=== PATIENT | female | born 1975 | race Caucasian/White ===

== ENCOUNTER 2018-09-01 04:25 | Emergency (ER) | payer BC, OTHER ==
[~2018-09-01] VITALS: Ht 175.3 cm; Wt 120.2 kg
[~2018-09-01 04:25] MED LIST: AGM875T PO; ALPR.5T PO; ASP81TEC PO; CPR500T PO; DCS100C PO; LISI1TAB10 PO; ONDN4T PO; OXYC-12 PO
--- OUTSIDE RECORDS SUMMARY | 2018-09-01 04:34 | XMS REPORT | Continuity of Care Document ---
Author Organization Unknown Address Unknown Allergies Active Description Code Type Severity Reaction Onset Reported/Identified Relationship to Patient Clinical Status Yes No Known Drug Allergies [id number] Drug Allergy Unknown N/A 12/25/2012 Medications There is no data. Problems There is no data. Procedures There is no data. Results There is no data. Encounters ACCT No. Visit Date/Time Discharge Status Pt. Type Provider Facility Loc./Unit Complaint [id number] 01/04/2013 18:10:00 01/07/2013 15:50:00 DIS Inpatient [id number] 12/25/2012 18:10:00 12/27/2012 15:40:00 DIS Inpatient [id number] 09/01/2018 04:30:00 ACT Emergency JAYMIE MOSES, TERRENCE Retana [facility] ER WOUND LEAKAGE FROM HERNIA REPAIR
--- OUTSIDE RECORDS SUMMARY | 2018-09-01 04:34 | XMS REPORT | Continuity of Care Document ---
Author Author [facility] Organization [facility] Address Unknown Phone Unavailable Care Team Providers Care Power Crane Operator Name Role Phone BIVINS, [facility] Insurance Providers Payer Name Policy Number Subscriber Name Relationship Self Pay Tanya Poe 01 Self / Same As Patient Advance Directives Directive Response Recorded Date Advance Directives N 12/25/12 8:00pm Problems No Known Problems or Medical conditions. Family History History Response Recorded Date/Time Hx Family Cancer N 12/25/12 8:00pm Hx Family Breast Cancer N 12/25/12 8: 00pm Hx Family Lung Cancer N 12/25/12 8:00pm Hx Family Colorectal Cancer N 12/25/12 8: 00pm Hx Family Cardiac Disorders Y Grandfather on both side 12/25/12 8:00pm Hx Family Stroke N 12/25/12 8:00pm Hx Family Hypertension N 12/25/12 8:00pm Hx Family Myocardial Infarction N 8:00pm Hx Family Cystic Fibrosis N 12/25/12 8: 00pm Social History History Response Recorded Date/Time Alcohol Use Denies Use 12/25/12 8:00pm Recreational Drug Use N 12/25/12 8:00pm Allergies, Adverse Reactions, Alerts Allergen Type Severity Reaction Last Updated No Known Drug Allergies 12/25/12 Medications Medication Dose Units Route Sig Qty Days Oxycodone Hcl/Acetaminophen (Percocet 5-325 Mg Tablet) 1 - 2 Tab PO Q4-6H PRN 35 Ciprofloxacin (Cipro) 1 Tab PO BID 7 Alprazolam (Xanax) 1 Tab PO TID PRN HCTZ/Lisinopril (Lisinopril-Hctz 20-25MG Tab) 1 Each PO DAILY Response Recorded Date/Time Status not known Unknown Results Test Date Result Interp. Ref. Range Alanine Aminotransferase (ALT/SGPT) December 25, 2012 5:15pm 31 U/L N 30-65 Albumin December 25, 2012 5:15pm 3.6 G/DL N 3.4-5.0 Alkaline Phosphatase December 25, 2012 5:15pm 111 U/L N 50-136 Amylase Level December 25, 2012 5:15pm 33 U/L N 25-115 Aspartate Amino Transf (AST/SGOT) December 25, 2012 5:15pm 12 U/L L 15-37 BUN/Creatinine Ratio December 25, 2012 5:15pm 8 - Band Neutrophils December 25, 2012 5:15pm 0 % - Basophils # (Auto) December 25, 2012 5:15pm 0.1 10^3/uL N 0.0-0.1 Basophils % (Manual) December 25, 2012 5:15pm 0 % - Basophils (%) (Auto) December 25, 2012 5:15pm 0 % N 0-10 Blood Urea Nitrogen December 25, 2012 5:15pm 7 MG/DL N 7-18 Calcium Level December 25, 2012 5:15pm 8.8 MG/DL N 8.5-10.1 Carbon Dioxide Level December 25, 2012 5:15pm 31 MMOL/L N 21-32 Chloride Level December 25, 2012 5:15pm 99 MMOL/L L 101-110 Creatinine December 25, 2012 5:15pm 0.9 MG /DL N 0.6-1.3 Eosinophils # (Auto) December 25, 2012 5:15pm 0.0 10^3/uL N 0.0-0.3 Eosinophils % (Manual) December 25, 2012 5:15pm 0 % - Eosinophils (%) (Auto) December 25, 2012 5:15pm 0 % N 0-10 Glucose Level December 25, 2012 5:15pm 103 MG/DL N 74-106 Hematocrit December 25, 2012 5:15pm 43 % N 35-52 Hemoglobin December 25, 2012 5:15pm 14.6 G /DL N 11.5-16.0 Lipase December 25, 2012 5:15pm 147 U/L N 73-393 Lymphocytes # (Auto) December 25, 2012 5:15pm 2.5 X 10^3 N 1.0-4.0 Lymphocytes % (Manual) December 25, 2012 5:15pm 18 % - Lymphocytes (%) (Auto) December 25, 2012 5:15pm 14 % N 12-44 Mean Corpuscular Hemoglobin December 25, 2012 5:15pm 30 PG N 25-34 Mean Corpuscular Hemoglobin Concent December 25, 2012 5:15pm 34 G/DL N 32-36 Mean Corpuscular Volume December 25, 2012 5:15pm 90 FL N 80-99 Mean Platelet Volume December 25, 2012 5:15pm 9.3 FL N 7.4-10.4 Monocytes # (Auto) December 25, 2012 5:15pm 1.6 X 10^3 H 0.0-1.0 Monocytes % (Manual) December 25, 2012 5:15pm 3 % - Monocytes (%) (Auto) December 25, 2012 5:15pm 9 % N 0-12 Neutrophils # (Auto) December 25, 2012 5:15pm 13.0 X 10^3 H 1.8-7.8 Neutrophils % (Manual) December 25, 2012 5:15pm 78 % - Neutrophils (%) (Auto) December 25, 2012 5:15pm 76 % H 42-75 Platelet Count December 25, 2012 5:15pm 472 10^3/uL H 130-400 Potassium Level December 25, 2012 5:15pm 3.7 MMOL/L N 3.6-5.0 Reactive Lymphocytes December 25, 2012 5:15pm 1 % - Red Blood Count December 25, 2012 5:15pm 4.80 10^6/uL N 4.35-5.85 Red Cell Distribution Width December 25, 2012 5:15pm 12.4 % N 10.0-14.5 Sodium Level December 25, 2012 5:15pm 135 MMOL/L N 135-145 Total Bilirubin December 25, 2012 5:15pm 0.7 MG/DL N 0.0-1.0 Total Protein December 25, 2012 5:15pm 7.3 G/DL N 6.4-8.2 White Blood Count December 25, 2012 5:15pm 17.2 10^3/uL H 4.3-11.0 Estimat Glomerular Filtration Rate December 25, 2012 5:15pm > 60 - Blood Morphology Comment December 25, 2012 5:15pm NORMAL - Procedures Procedure Code Date LAPAROSCOPIC CHOLECYSTECTOMY 51.23 Encounters Encounter Location Date/Time Discharged Inpatient [facility] 6:10pm
--- OUTSIDE RECORDS SUMMARY | 2018-09-01 04:34 | XMS REPORT | Continuity of Care Document ---
Author Author [facility] Organization [facility] Address Unknown Phone Unavailable Care Team Providers Care Manager Quality Systems Name Role Phone NO, LOCAL PHYSICIAN PP Unavailable Insurance Providers Payer Name Policy Number Subscriber Name Relationship Self Pay Tanya Poe 01 Self / Same As Patient Advance Directives Directive Response Recorded Date Advance Directives N 01/04/13 8:00pm Health Care Power of Agile Scrum Coach N 01/04/13 8:00pm Organ Donor N 01/04/13 8:00pm Problems No Known Problems or Medical conditions. Family History History Response Recorded Date/Time Hx Family Cancer N 01/04/13 8:00pm Hx Family Breast Cancer N 01/04/13 8: 00pm Hx Family Lung Cancer N 01/04/13 8:00pm Hx Family Colorectal Cancer N 01/04/13 8: 00pm Hx Family Cardiac Disorders Y Grandfather on both side 01/04/13 8:00pm Hx Family Stroke N 01/04/13 8:00pm Hx Family Hypertension N 01/04/13 8:00pm Hx Family Myocardial Infarction N 8:00pm Hx Family Cystic Fibrosis N 01/04/13 8: 00pm Social History History Response Recorded Date/Time Alcohol Use Denies Use 01/04/13 8:00pm Recreational Drug Use N 01/04/13 8:00pm Allergies, Adverse Reactions, Alerts Allergen Type Severity Reaction Last Updated No Known Drug Allergies 12/25/12 Medications Medication Dose Units Route Sig Qty Days Oxycodone Hcl/Acetaminophen (Percocet 5-325 Mg Tablet) 1 Each PO Q4-6H PRN 20 Docusate Sodium (Colace Cap) 100 Mg PO BID Amoxicillin/Clavulanate K (Augmentin 875 Mg Tablet) 875 Mg PO BID 10 Aspirin (Aspirin Ec 81 Mg) 81 Mg PO DAILY Ondansetron Hcl (Zofran Po) 4 Mg PO Q6H Alprazolam (Xanax) 1 Tab PO TID PRN HCTZ/Lisinopril (Lisinopril-Hctz 20-25MG Tab) 1 Each PO DAILY Oxycodone Hcl/Acetaminophen (Percocet 5-325 Mg Tablet) 1 - 2 Tab PO Q4-6H PRN 35 Ciprofloxacin (Cipro) 1 Tab PO BID 7 Response Recorded Date/Time Status not known Unknown Results Test Date Result Interp. Ref. Range Alanine Aminotransferase (ALT/SGPT) December 25, 2012 5:15pm 31 U/L N 30-65 Albumin December 25, 2012 5:15pm 3.6 G/DL N 3.4-5.0 Alkaline Phosphatase December 25, 2012 5:15pm 111 U/L N 50-136 Amylase Level December 26, 2012 5:45am 28 U/L N 25-115 Aspartate Amino Transf (AST/SGOT) December 25, 2012 5:15pm 12 U/L L 15-37 BUN/Creatinine Ratio December 27, 2012 5:26am 7 - Band Neutrophils December 25, 2012 5:15pm 0 % - Basophils # (Auto) December 25, 2012 5:15pm 0.1 10^3/uL N 0.0-0.1 Basophils % (Manual) December 25, 2012 5:15pm 0 % - Basophils (%) (Auto) December 25, 2012 5:15pm 0 % N 0-10 Blood Urea Nitrogen December 27, 2012 5:26am 6 MG/DL L 7-18 Calcium Level December 27, 2012 5:26am 8.7 MG/DL N 8.5-10.1 Carbon Dioxide Level December 27, 2012 5:26am 27 MMOL/L N 21-32 Chloride Level December 27, 2012 5:26am 101 MMOL/L N 101-110 Creatinine December 27, 2012 5:26am 0.9 MG /DL N 0.6-1.3 Eosinophils # (Auto) December 25, 2012 5:15pm 0.0 10^3/uL N 0.0-0.3 Eosinophils % (Manual) December 25, 2012 5:15pm 0 % - Eosinophils (%) (Auto) December 25, 2012 5:15pm 0 % N 0-10 Glucose Level December 27, 2012 5:26am 117 MG/DL H 74-106 Hematocrit December 27, 2012 5:36am 40 % N 35-52 Hemoglobin December 27, 2012 5:36am 13.0 G /DL N 11.5-16.0 Lipase December 26, 2012 5:45am 107 U/L N 73-393 Lymphocytes # (Auto) December 25, 2012 5:15pm 2.5 X 10^3 N 1.0-4.0 Lymphocytes % (Manual) December 25, 2012 5:15pm 18 % - Lymphocytes (%) (Auto) December 25, 2012 5:15pm 14 % N 12-44 Mean Corpuscular Hemoglobin December 27, 2012 5:36am 30 PG N 25-34 Mean Corpuscular Hemoglobin Concent December 27, 2012 5:36am 33 G/DL N 32-36 Mean Corpuscular Volume December 27, 2012 5:36am 93 FL N 80-99 Mean Platelet Volume December 27, 2012 5:36am 9.7 FL N 7.4-10.4 Monocytes # (Auto) December [...] 76 % H 42-75 Platelet Count December 27, 2012 5:36am 424 10^3/uL H 130-400 Potassium Level December 27, 2012 5:26am 4.5 MMOL/L N 3.6-5.0 Reactive Lymphocytes December 25, 2012 5:15pm 1 % - Red Blood Count December 27, 2012 5:36am 4.27 10^6/uL L 4.35-5.85 Red Cell Distribution Width December 27, 2012 5:36am 12.2 % N 10.0-14.5 Serum Test, Qualitative December 26, 2012 5:45am NEGATIVE - Sodium Level December 27, 2012 5:26am 135 MMOL/L N 135-145 Total Bilirubin December 25, 2012 5:15pm 0.7 MG/DL N 0.0-1.0 Total Protein December 25, 2012 5:15pm 7.3 G/DL N 6.4-8.2 White Blood Count December 27, 2012 5:36am 16.8 10^3/uL H 4.3-11.0 Estimat Glomerular Filtration Rate December 25, 2012 5:15pm > 60 - Blood Morphology Comment December 25, 2012 5:15pm NORMAL - Procedures Procedure Code Date LAPAROSCOPIC CHOLECYSTECTOMY 51.23 MRSA Screen 12/25/12 Encounters Encounter Location Date/Time Discharged Inpatient [facility] 6:10pm
[2018-09-01] MEDS ORDERED: METF-399 PO (04:40)
[2018-09-01] MEDS ORDERED: CEPHALEXIN 250 MG (KEFLEX) CAP PO STA (05:12)
--- NOTE | 2018-09-01 05:18 | ED Integumentary General ---
General Chief Complaint: Skin/Wound Problems Stated Complaint: WOUND LEAKAGE FROM HERNIA REPAIR Nursing Triage Note: POST OP HERNIA REPAIR SITE DRAINING. Source: patient Exam Limitations: no limitations History of Present Illness Date Seen by Provider: Sep 01, 2018 Time Seen by Provider: 05:02 Initial Comments Here with leakage of brown/bloody substance from wound on the left mid abdomen where she had hernia repair that appears to be laparoscopic. Her other wounds for all clean, dry and intact. Denies fevers. Did have a fair amount swelling in that area and that has decreased as the wound is leaking. Drainage is not foul-smelling. Surgery by Dr. Mathew a week ago. Seen earlier this week by Dr. Mathew and was told that this was a hematoma. Timing/Duration: this morning Severity: moderate Location: torso (abdomen left side middle) Possible Cause: other (postop hematoma) Associated Symptoms: No edema, No fever Allergies and Home Medications Allergies Coded Allergies: No Known Drug Allergies (Unverified , 12/25/12) Home Medications Hctz/Lisinopril 1 Tab Tablet, 1 EACH PO DAILY, (Reported) Patient Home Medication List Home Medication List Reviewed: Yes Review of Systems Review of Systems Constitutional: see HPI; No chills, No fever EENTM: nose congestion; No throat pain Respiratory: no symptoms reported Cardiovascular: no symptoms reported Gastrointestinal: see HPI, abdominal pain (mild but improving pain in the area where hematoma/seroma noted.) Skin: see HPI, change in color (ecchymosis noted below wound that is leaking.) Past Dfthyco-Uhyvmu-Yuynsp Hx Past Med/Social Hx: Reviewed Nursing Past Med/Soc Hx Patient Social History Alcohol Use: Denies Use Recreational Drug Use: No Smoking Status: Current Everyday Smoker Type Used: Cigarettes 2nd Hand Smoke Exposure: Yes Recent Foreign Travel: No Contact w/Someone Who Travel: No Recent Infectious Disease Expo: No Recent Hopitalizations: No Immunizations Up To Date Tetanus Booster (TDap): Less than 5yrs Seasonal Allergies Seasonal Allergies: No Past Medical History Surgeries: Yes (HERNIA REPAIR) Abdominal, Gallbladder, Tubal Ligation Respiratory: No Cardiac: Yes Hypertension Neurological: No : No Reproductive Disorders: No DIRECTOR EXTERNAL COMMUNICATIONS History: Tubal Ligation Gastrointestinal: No Gall Bladder Disease Musculoskeletal: No Endocrine: Yes Diabetes, Non-Insulin dep HEENT: No Cancer: No Psychosocial: Yes Anxiety Integumentary: No Blood Disorders: No Adverse Reaction/Blood Tranf: No Family Medical History Reviewed Nursing Family Hx Physical Exam Vital Signs Vital Signs - First Documented 09/01/18 04:32 Temp 97.6 Pulse 107 Resp 18 B/P (MAP) 158/114 (129) Pulse Ox 96 O2 Delivery Room Air Capillary Refill : Less Than 3 Seconds General Appearance: WD/WN, no apparent distress Cardiovascular: regular rate, rhythm, no murmur Respiratory: lungs clear, normal breath sounds Gastrointestinal: soft, tenderness (mild in the area of the wound) Neurologic/Psychiatric: alert, oriented x 3 Skin: warm/dry, ecchymosis (left abdomen), other (multiple surgical wounds with the exception of the left upper are clean, dry and intact.) Skin Problem Location: other (left upper scalp wound leaking red/brown fluid. No foul-smelling drainage. No purulence noted.) Progress/Results/Core Measures Results/Orders My Orders Orders - TERRENCE COON MD Cephalexin Capsule (Keflex Capsule) (09/01/18 05:12) Vital Signs/I&O 09/01/18 04:32 Temp 97.6 Pulse 107 Resp 18 B/P (MAP) 158/114 (129) Pulse Ox 96 O2 Delivery Room Air Blood Pressure Mean: 129 Progress Progress Note : Progress Note Seen and evaluated. Wound expressed and fluid consistent with liquefied hematoma noted draining from wound. Culture obtained. Patient states that the size of the swelling is markedly decreased and overall she is feeling better now. She will follow-up with her surgeon. Discharged home with return precautions. Patient verbalize understanding instructions and agreement with plan. Departure Impression Primary Impression: Postoperative hematoma Qualified Codes: L76.32 - Postprocedural hematoma of skin and subcutaneous tissue following other procedure Disposition: HOME, SELF-CARE Condition: Improved Departure-Patient Inst. Decision time for Depature: 05:19 Referrals: RYANN MATHEW,LOCAL PHYSICIAN (PCP) Primary Care Physician Patient Instructions: HEMATOMA, POST OP BLEEDING Add. Discharge Instructions: All discharge instructions reviewed with patient and/or family. Voiced understanding. Change dressing as often as needed when it becomes soiled. You may still have a fair amount of drainage for wound. Draining. Call Dr. Mathew first thing Sunday morning for recheck. You have a culture that is pending. You will be called if there is any need for change of antibiotics. Take medications as directed. You may continue ibuprofen and/or Tylenol/acetaminophen as needed for pain. Return for worse pain, foul-smelling drainage, fever, increasing redness around the wound or other concerns as needed. Scripts Cephalexin (Cephalexin) 500 Mg Tablet 500 MG PO QID, #28 TAB 0 Refills Prov: TERRENCE COON MD 09/01/18 TERRENCE COON MD Sep 01, 2018 05:18
[2018-09-01] MEDS ORDERED: CEPH500T PO (05:22)
[2018-09-01 05:30] VITALS: BP 158/114
== END 2018-09-01 05:31 | disposition home or self-care (01) ==
LOC: EDUNIT# 04:25 → ER 04:30
DX: L76.32 Postprocedural hematoma of skin and subcutaneous tissue following other procedure (principal); I10 Essential (primary) hypertension; E11.9 Type 2 diabetes mellitus without complications; F41.9 Anxiety disorder, unspecified; F17.210 Nicotine dependence, cigarettes, uncomplicated; Z87.19 Personal history of other diseases of the digestive system; Z98.890 Other specified postprocedural states; Z98.51 Tubal ligation status
CPT/HCPCS: 87070; 87205